=== PATIENT | male | born 1955 | race Caucasian/White ===

== ENCOUNTER 2016-10-30 10:48 | Emergency (ER) | payer OTHER, BC ==
[2016-10-30] MEDS ORDERED: ACETAMINOPHEN 325 MG TABLET PO ONE (11:43)
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
--- NOTE | 2016-10-30 12:42 | RADIOLOGY REPORT ---
A limited single portable view of the chest, without prior films for comparison , demonstrates the heart, vessels and lungs to be unremarkable. No infiltrate, fluid or pneumothorax is seen. IMPRESSION: Unremarkable limited single portable view of the chest. MTDD
== END 2016-10-30 12:08 | disposition home or self-care (01) ==
LOC: ER 10:48
DX: S20.211A Contusion of right front wall of thorax, initial encounter (principal); V49.9XXA Car occupant (driver) (passenger) injured in unspecified traffic accident, initial encounter; Y92.410 Unspecified street and highway as the place of occurrence of the external cause
CPT/HCPCS: 36415; 71010; 84484; 93005; 99284